=== PATIENT | male | born 1975 | race Caucasian/White ===

== ENCOUNTER 2016-10-20 10:05 | Emergency (ER) | payer OTHER ==
[2016-10-20 10:19] VITALS: BP 130/83
--- NOTE | 2016-10-20 11:06 | UC ---
Laceration HPI - HPI Summary HPI Summary: THREE DAYS AGO LACERATION TO LEFT INDEX FINGER WITH AUDIO/VISUAL MANAGER. TODAY WHILE SHOVELING, WOUND KEEPS OPENING. TETANUS UTD. - History Of Current Complaint Chief Complaint: UCLaceration Stated Complaint: HAND LAC Time Seen by Provider: 10/20/16 10:09 Hx Obtained From: Patient Laceration Location: Finger Mechanism Of Injury: Sharp Trauma Onset/Duration: Sudden Onset, Lasting Days, Worse Since - TODAYS Severity: Mild Aggravating Factors: Nothing Related History: Dominant Hand Right - Allergies/Home Medications Allergies/Adverse Reactions: Allergies Allergy/AdvReac Type Severity Reaction Status Date / Time No Known Allergies Allergy Verified 10/20/16 10:20 Home Medications: Home Medications Buprenorphine HCl-Naloxone HCl [Suboxone] 1 mis SL 10/20/16 [History] PMH/Surg Hx/FS Hx/Imm Hx Previously Healthy: Yes Endocrine History Of: Denies: Diabetes Cardiovascular History Of: Denies: Hypertension, Congestive Heart Failure GI/ History Of: Denies: Renal Disease - Surgical History Surgical History: Yes Surgery Procedure, Year, and Place: CHOLECYSTECTOMY - Family History Known Family History: Positive: Unknown Negative: Blood Disorder - Social History Occupation: Employed Full-time Lives: With Family Alcohol Use: None Substance Use Type: None, Prescribed Substance Use Comment - Amount & Last Used: suboxone Smoking Status (MU): Heavy Every Day Tobacco Smoker Type: Cigarettes Amount Used/How Often: 1.5 ppd Have You Smoked in the Last Year: Yes Cessation Counseling: Patient Advised to Stop - Immunization History Most Recent Tetanus Shot: less 10 years ago Review of Systems Constitutional: Negative Skin: Other - LACERATION LEFT INDEX FINGER Eyes: Negative ENT: Negative Respiratory: Negative Cardiovascular: Negative Gastrointestinal: Negative Genitourinary: Negative Motor: Negative Neurovascular: Negative Musculoskeletal: Negative Neurological: Negative Psychological: Negative All Other Systems Reviewed And Are Negative: Yes Physical Exam Triage Information Reviewed: Yes Appearance: Well-Appearing, No Pain Distress, Well-Nourished Vital Signs: Initial Vital Signs Temp 98.4 F 10/20/16 10:13 Pulse 70 10/20/16 10:13 Resp 20 10/20/16 10:13 BP 130/83 10/20/16 10:13 Pulse Ox 99 10/20/16 10:13 Vital Signs Reviewed: Yes Eye Exam: Normal ENT Exam: Normal ENT: Positive: Normal ENT inspection Dental Exam: Normal Neck exam: Normal Neck: Positive: Supple, Nontender, No Lymphadenopathy Respiratory Exam: Normal Respiratory: Positive: Chest non-tender, Lungs clear, Normal breath sounds, No respiratory distress, No accessory muscle use Cardiovascular Exam: Normal Cardiovascular: Positive: RRR, No Murmur, Pulses Normal, Brisk Capillary Refill Abdominal Exam: Normal Abdomen Description: Positive: Nontender, No Organomegaly Musculoskeletal Exam: Normal Musculoskeletal: Positive: Strength Intact, ROM Intact Neurological Exam: Normal Psychological Exam: Normal Psychological: Positive: Normal Response To Family Skin: Positive: Other - 3CM LACERATION LEFT INDEX FINGER Laceration Repair - Laceration Repair 1 Laceration Size After Repair: Length (cm) - 3, Width (mm) - 2, Depth (mm) - 2 Cleansing Completed Via Routine Prep: Yes Closure Material: Skin Adhesive, SteriStrips Laceration Course/Dx - Differential Dx - Laceration/Wound Provider Diagnoses: OLD LACERATION 3CM LEFT INDEX FINGER Discharge - Discharge Plan Condition: Stable Disposition: HOME Prescriptions: Cephalexin CAP* [Keflex CAP*] 500 mg PO TID #15 cap Patient Education Materials: Skin Adhesive Care (ED), Steristrips (ED), Laceration Without Closure (ED) Forms: *Work Release Referrals: Harmony Gunter DO [Primary Care Provider] -
== END 2016-10-20 11:09 | disposition home or self-care (01) ==
LOC: UCEAST 10:05
DX: T81.30XA Disruption of wound, unspecified, initial encounter (principal); Z90.49 Acquired absence of other specified parts of digestive tract; F17.210 Nicotine dependence, cigarettes, uncomplicated
CPT/HCPCS: 99212; G0463

== ENCOUNTER 2016-12-29 12:28 | Emergency (ER) | payer OTHER ==
[2016-12-29 13:36] VITALS: BP 130/71
--- NOTE | 2016-12-29 14:21 | UC ---
Upper Extremity HPI <Hoda Echols - Last Filed: 12/29/16 14:16> - HPI Summary HPI Summary: Patient has had a sharp pain in the irght shoulder since a shovelling injury a few weeks ago, is suffering from tennis elbow bilaterally, clicking sound in the right shoulder - History of Current Complaint Hx Obtained From: Patient ?: No Onset/Duration: Sudden Onset, Lasting Weeks Severity Initially: Moderate Severity Currently: Moderate Location Of Pain: Is Discrete @ - upper right shoulder Character: Sharp, Spasmodic Aggravating Factor(s): Movement Alleviating Factor(s): Nothing - Risk Factors Non-Orthopedic Risk Factor: Negative DVT Risk Factors: Negative <Selena Parson - Last Filed: 12/29/16 14:31> - History of Current Complaint Chief Complaint: UCUpperExtremity Stated Complaint: ELBOW/SHOULDER PAIN - Allergies/Home Medications Allergies/Adverse Reactions: Allergies Allergy/AdvReac Type Severity Reaction Status Date / Time No Known Allergies Allergy Verified 12/29/16 13:36 PMH/Surg Hx/FS Hx/Imm Hx Endocrine History Of: Denies: Diabetes Cardiovascular History Of: Denies: Hypertension, Congestive Heart Failure GI/ History Of: Denies: Renal Disease - Surgical History Surgical History: Yes Surgery Procedure, Year, and Place: CHOLECYSTECTOMY - Family History Known Family History: Negative: Blood Disorder - Social History Alcohol Use: None Substance Use Type: None, Prescribed Substance Use Comment - Amount & Last Used: suboxone Smoking Status (MU): Heavy Every Day Tobacco Smoker Type: Cigarettes Amount Used/How Often: 1.5 ppd Have You Smoked in the Last Year: Yes - Immunization History Most Recent Tetanus Shot: less 10 years ago <Hoda Echols - Last Filed: 12/29/16 14:16> Previously Healthy: Yes - Family History Known Family History: Positive: Hypertension <Selena Parson - Last Filed: 12/29/16 14:31> Review of Systems Constitutional: Negative Skin: Negative Eyes: Negative ENT: Negative Respiratory: Negative Cardiovascular: Negative Gastrointestinal: Negative Genitourinary: Negative Motor: Negative Neurovascular: Negative Musculoskeletal: Arthralgia, Myalgia Neurological: Negative Psychological: Negative All Other Systems Reviewed And Are Negative: Yes <Selena Parson - Last Filed: 12/29/16 14:31> Physical Exam Vital Signs: Initial Vital Signs Temp 98.7 F 12/29/16 13:33 Pulse 65 12/29/16 13:33 Resp 20 12/29/16 13:33 BP 130/71 12/29/16 13:33 Pulse Ox 99 12/29/16 13:33 <Hoda Echols - Last Filed: 12/29/16 14:16> Triage Information Reviewed: Yes Appearance: Well-Appearing, Well-Nourished, Pain Distress Vital Signs: Initial Vital Signs Temp 98.7 F 12/29/16 13:33 Pulse 65 12/29/16 13:33 Resp 20 12/29/16 13:33 BP 130/71 12/29/16 13:33 Pulse Ox 99 12/29/16 13:33 Vital Signs Reviewed: Yes Eye Exam: Normal Eyes: Positive: Conjunctiva Clear ENT: Positive: Normal ENT inspection, Hearing grossly normal, Pharynx normal, TMs normal Dental Exam: Normal Neck exam: Normal Neck: Positive: Supple, Nontender, No Lymphadenopathy Respiratory Exam: Normal Respiratory: Positive: Chest non-tender, Lungs clear, Normal breath sounds Cardiovascular Exam: Normal Cardiovascular: Positive: RRR, No Murmur, Pulses Normal Abdominal Exam: Normal Abdomen Description: Positive: Nontender, No Organomegaly, Soft Bowel Sounds: Positive: Present Musculoskeletal: Positive: ROM Intact - but painful in all directions, No Edema , Strength Limited @ - over head motion painful, apley scratch test decreased on right side Neurological: Positive: Alert, Muscle Tone Normal Psychological Exam: Normal Skin Exam: Normal <Selena Parson - Last Filed: 12/29/16 14:31> Upper Extremity Course/Dx - Course Course Of Treatment: hx obtained, exam performed, meds reviewed, naproxen given , xray obtained, - Differential Dx/Diagnosis Differential Diagnosis/HQI/PQRI: Bursitis, Contusion, Fracture (Closed), Laceration, Strain, Sprain <Selena Parson - Last Filed: 12/29/16 14:31> Discharge <Hoda Echols - Last Filed: 12/29/16 14:16> <Selena Parson - Last Filed: 12/29/16 14:31> - Discharge Plan Referrals: Harmony Gunter DO [Primary Care Provider] -
[2016-12-29] MEDS ORDERED: Naproxen TAB* 250 MG PO ONE (14:24)
--- NOTE | 2016-12-29 14:43 | UC ---
Shoulder Pain HPI - HPI Summary HPI Summary: Patient has had increased pain in the right shoulder since he was shoveling a few weeks ago, also has tendonitis of both elbows. - History of Current Complaint Chief Complaint: UCUpperExtremity Stated Complaint: ELBOW/SHOULDER PAIN Time Seen by Provider: 12/29/16 14:17 Hx Obtained From: Patient Onset/Duration: Sudden Onset, Lasting Weeks Severity Initially: Moderate Severity Currently: Moderate Location Of Pain: Is Discrete @ - upper right shoulder - Risk Factors Non-Orthopedic Risk Factor: Negative DVT Risk Factors: Negative - Allergies/Home Medications Allergies/Adverse Reactions: Allergies Allergy/AdvReac Type Severity Reaction Status Date / Time No Known Allergies Allergy Verified 12/29/16 13:36 PMH/Surg Hx/FS Hx/Imm Hx Previously Healthy: Yes Endocrine History Of: Denies: Diabetes Cardiovascular History Of: Denies: Hypertension, Congestive Heart Failure GI/ History Of: Denies: Renal Disease - Surgical History Surgical History: Yes Surgery Procedure, Year, and Place: CHOLECYSTECTOMY - Family History Known Family History: Positive: Hypertension Negative: Blood Disorder - Social History Alcohol Use: None Substance Use Type: None, Prescribed Substance Use Comment - Amount & Last Used: suboxone Smoking Status (MU): Heavy Every Day Tobacco Smoker Type: Cigarettes Amount Used/How Often: 1.5 ppd Have You Smoked in the Last Year: Yes - Immunization History Most Recent Tetanus Shot: less 10 years ago Review of Systems Constitutional: Negative Skin: Negative Eyes: Negative ENT: Negative Respiratory: Negative Cardiovascular: Negative Gastrointestinal: Negative Genitourinary: Negative Motor: Negative Neurovascular: Negative Musculoskeletal: Arthralgia, Myalgia Neurological: Negative Psychological: Negative All Other Systems Reviewed And Are Negative: Yes Physical Exam Triage Information Reviewed: Yes Appearance: Well-Appearing, Well-Nourished, Pain Distress Vital Signs: Initial Vital Signs Temp 98.7 F 12/29/16 13:33 Pulse 65 12/29/16 13:33 Resp 20 12/29/16 13:33 BP 130/71 12/29/16 13:33 Pulse Ox 99 12/29/16 13:33 Vital Signs Reviewed: Yes Eye Exam: Normal Eyes: Positive: Conjunctiva Clear ENT: Positive: Normal ENT inspection, Hearing grossly normal, Pharynx normal, TMs normal Dental Exam: Normal Neck exam: Normal Neck: Positive: Supple, Nontender, No Lymphadenopathy Respiratory Exam: Normal Respiratory: Positive: Chest non-tender, Lungs clear, Normal breath sounds Cardiovascular Exam: Normal Cardiovascular: Positive: RRR, No Murmur, Pulses Normal Abdominal Exam: Normal Abdomen Description: Positive: Nontender, No Organomegaly, Soft Bowel Sounds: Positive: Present Musculoskeletal: Positive: ROM Intact - but painful in all directions, No Edema , Strength Limited @ - over head motion painful, apley scratch test decreased on right side Neurological: Positive: Alert, Muscle Tone Normal Psychological Exam: Normal Skin Exam: Normal Shoulder Course/Dx - Course Course Of Treatment: hx obtained, exam performed, meds reviewed, naproxen given , xray obtained no acute injury noted, educated on stretching, and use of heat to increase mobility. Recommend massage therapy for medical terminologist care. - Differential Dx/Diagnosis Differential Diagnosis/HQI/PQRI: AC Separation, Dislocation, Fracture (Closed), Sprain, Strain, Tendonitis Provider Diagnoses: bilateral shoulder tendonitis Discharge - Discharge Plan Condition: Stable Disposition: HOME Patient Education Materials: Tendinitis (ED) Referrals: Harmony Gunter DO [Primary Care Provider] - Additional Instructions: 1. take the anti inflammatory as prescribed. 2. follow up with stretching - you can access the following stretching techniques on YouTube search Joselito Deal. 3. I recommend rest, heat and massage to help relieve the tight musculature and tendons
--- NOTE | 2016-12-29 14:48 | RAD ---
HISTORY: Right shoulder pain COMPARISONS: None VIEWS: 3, Frontal internal rotation, external rotation, and outlet views of the right shoulder. There is no significant excursion on the external rotation views. FINDINGS: BONE DENSITY: Normal. BONES: There is no displaced fracture. JOINTS: There is no arthropathy. ALIGNMENT: There is no dislocation. SOFT TISSUES: Unremarkable. OTHER FINDINGS: None. IMPRESSION: LIMITED STUDY. NO ACUTE OSSEOUS INJURY. IF SYMPTOMS PERSIST, RECOMMEND REPEAT IMAGING.
== END 2016-12-29 15:09 | disposition home or self-care (01) ==
LOC: UCEAST 12:28
DX: M75.92 Shoulder lesion, unspecified, left shoulder (principal); M75.91 Shoulder lesion, unspecified, right shoulder; F17.210 Nicotine dependence, cigarettes, uncomplicated
CPT/HCPCS: 99212; A9270-GY; G0463

== ENCOUNTER 2018-08-16 08:12 | Emergency (ER) | payer SELFPAY ==
[2018-08-16 08:20] VITALS: BP 147/87
--- NOTE | 2018-08-16 09:39 | UC ---
Lower Extremity/Ankle HPI - HPI Summary HPI Summary: 43-year-old male comes in to clinic today with a chief complaint of right anterior walters injury that occurred on August 13, 2018 while at work. He struck his right walters on an object. He has an abrasion there. He's been keeping the area clean and has been applying coconut oil to the area. No drainage. He has quite a bit of tenderness with any sort of palpation. He has pain with ambulation also. He is weightbearing. - History of Current Complaint Chief Complaint: UCLowerExtremity Stated Complaint: R LEG INJURY Time Seen by Provider: 08/16/18 08:25 Pain Intensity: 4 - Allergies/Home Medications Allergies/Adverse Reactions: Allergies Allergy/AdvReac Type Severity Reaction Status Date / Time No Known Allergies Allergy Verified 08/16/18 08:21 PMH/Surg Hx/FS Hx/Imm Hx Previously Healthy: Yes - Surgical History Surgical History: Yes Surgery Procedure, Year, and Place: CHOLECYSTECTOMY - Family History Known Family History: Positive: Hypertension Negative: Blood Disorder - Social History Alcohol Use: None Substance Use Type: None Substance Use Comment - Amount & Last Used: suboxone Smoking Status (MU): Heavy Every Day Tobacco Smoker Type: Cigarettes Amount Used/How Often: 1.5 ppd Have You Smoked in the Last Year: Yes - Immunization History Most Recent Tetanus Shot: less 10 years ago Review of Systems All Other Systems Reviewed And Are Negative: Yes Constitutional: Positive: Negative Skin: Positive: Other - SEE HPI Eyes: Positive: Negative ENT: Positive: Negative Respiratory: Positive: Negative Cardiovascular: Positive: Negative Gastrointestinal: Positive: Negative Motor: Positive: Negative Neurovascular: Positive: Negative Musculoskeletal: Positive: Other: - SEE HPI Neurological: Positive: Negative Psychological: Positive: Negative Is Patient Immunocompromised?: No Physical Exam Triage Information Reviewed: Yes Appearance: Well-Appearing, No Pain Distress, Well-Nourished Vital Signs: Initial Vital Signs Temp 98 F 08/16/18 08:17 Pulse 78 08/16/18 08:17 Resp 16 08/16/18 08:17 BP 147/87 08/16/18 08:17 Pulse Ox 100 08/16/18 08:17 Vital Signs Reviewed: Yes Eye Exam: Normal Eyes: Positive: Conjunctiva Clear Neck exam: Normal Neck: Positive: Supple Respiratory: Positive: No respiratory distress Musculoskeletal Exam: Normal Musculoskeletal: Positive: Strength Intact, ROM Intact Neurological Exam: Normal Neurological: Positive: Alert, Muscle Tone Normal Psychological Exam: Normal Psychological: Positive: Age Appropriate Behavior Skin: Positive: Other - On the right walters the patient has an approximately 5 cm abrasion that is 1 cm wide. IT does have surrounding erythema. No drainage no streaking. It's tender to palpation. The knee and the ankle are full range of motion and nontender to palpation. Lower Extremity Course/Dx - Course Course Of Treatment: Order Information: LOWER LEG RIGHT. Accession Number: [id number]. CPT: 35264. Indication: Swelling and pain at the right walters following trauma. Comparison: None. Technique: AP and lateral views right lower leg. Report: The visualized bones are adequately corticated and well aligned. There is no acute. fracture, dislocation or other focal abnormality. The soft tissues appear grossly normal. IMPRESSION: No radiographically apparent fracture or dislocation. If the patient's symptoms persist, follow-up imaging is recommended. . <Electronically signed by Wilber Ferrell MD in OV> 08/16/18 0900. I discussed the x-ray reports with the patient. The overall plan is to continue the symptomatic treatment. I also sent and an antibiotic prescription to be used if the redness spreads with is any drainage or any concern of infection. Follow-up if not improving or worsening. - Differential Dx/Diagnosis Provider Diagnosis: Contusion of right lower leg, Abrasion of right lower leg Discharge - Sign-Out/Discharge Documenting (check all that apply): Patient Departure All imaging exams completed and their final reports reviewed: Yes - Discharge Plan Condition: Stable Disposition: HOME Prescriptions: Cephalexin CAP* [Keflex CAP*] 500 mg PO QID #40 cap Patient Education Materials: Contusion in Adults (ED), Abrasion (ED) Referrals: [facility] [place] [facility] REFERRAL [Outside] Additional Instructions: FOLLOW UP WITH YOUR DOCTOR IF NOT COMPLETELY IMPROVED. START THE ANTIBIOTIC IF THERE ARE ANY SIGNS OF INFECTION. GET RECHECKED FOR ANY WORSENING OF YOUR CONDITION; PAIN, FEVER, INFECTION, YOU FEEL ILL OR QUESTIONS OR CONCERNS. - Billing Disposition and Condition Condition: STABLE Disposition: Home
== END 2018-08-16 09:30 | disposition home or self-care (01) ==
LOC: UCEAST 08:12
DX: S80.811A Abrasion, right lower leg, initial encounter (principal); W22.8XXA Striking against or struck by other objects, initial encounter; Y92.89 Other specified places as the place of occurrence of the external cause; Y99.0 Civilian activity done for income or pay; F17.210 Nicotine dependence, cigarettes, uncomplicated
CPT/HCPCS: 99212; G0463

== ENCOUNTER 2019-10-08 15:07 | Emergency (ER) | payer MEDICAID, OTHER ==
[2019-10-08 15:13] VITALS: BP 131/82
--- NOTE | 2019-10-08 15:29 | UC ---
Skin Complaint HPI - HPI Summary HPI Summary: patient was doing a mildred job over past week and kneeling frequently. he developed a small sore on R knee, tried to "pop it" 2-3 times over past 2 days, but nothing came out, no drainage since, but now red and swollen. no fever/ chills denies hx MRSA - History of Current Complaint Chief Complaint: UCSkin Time Seen by Provider: 10/08/19 15:19 Stated Complaint: KNEE PAIN Hx Obtained From: Patient Onset/Duration: Gradual Onset Timing: Constant Onset Severity: Mild Current Severity: Moderate Pain Intensity: 5 Location: Discrete - front of right knee Aggravating Factor(s): Touch, Other - bending knee Alleviating Factor(s): Nothing Associated Signs & Symptoms: Positive: Tenderness. 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 Substance Use Comment - Amount & Last Used: suboxone Smoking Status (MU): Heavy Every Day Tobacco Smoker Type: Cigarettes Amount Used/How Often: 1.5 ppd Have You Smoked in the Last Year: Yes Cessation Counseling: Patient Advised to Stop - Immunization History Most Recent Tetanus Shot: less 10 years ago Review of Systems All Other Systems Reviewed And Are Negative: Yes Constitutional: Positive: Negative Skin: Positive: Other - redness R knee Respiratory: Positive: Negative Cardiovascular: Positive: Negative Musculoskeletal: Negative: Decreased ROM Neurological: Positive: Negative Psychological: Positive: Negative Is Patient Immunocompromised?: No Physical Exam Triage Information Reviewed: Yes Appearance: Well-Appearing, No Pain Distress, Well-Nourished Vital Signs: Initial Vital Signs Temp 98.0 F 10/08/19 15:10 Pulse 80 10/08/19 15:10 Resp 16 10/08/19 15:10 BP 131/82 10/08/19 15:10 Pulse Ox 98 10/08/19 15:10 Vital Signs Reviewed: Yes Respiratory Exam: Normal Respiratory: Positive: Lungs clear Cardiovascular Exam: Normal Cardiovascular: Positive: RRR Musculoskeletal Exam: Normal Neurological Exam: Normal Psychological Exam: Normal Skin: Positive: Other - 2cm round, erythemic swollen, slightly fluctuant area R patella, no drainage Course/Dx - Differential Diagnoses - Skin Complaint Differential Diagnoses: Abscess, Cellulitis - Diagnoses Provider Diagnosis: Abscess Discharge ED - Sign-Out/Discharge Documenting (check all that apply): Patient Departure All imaging exams completed and their final reports reviewed: No Studies - Discharge Plan Condition: Good Disposition: HOME Prescriptions: Sulfamethox/Trimethoprim DS* [Bactrim DS 800/160 TAB*] 1 tab PO BID #20 tab Patient Education Materials: Abscess (ED) Referrals: No Primary Care Phys,NOPCP [Primary Care Provider] - Additional Instructions: keep area clean and dry and refrain from applying pressure on knee start Bactrim antibiotic and take as directed use ibuprofen for pain return here if your pain worsens, or you develop a fever/chills or worsening swelling - Billing Disposition and Condition Condition: GOOD Disposition: Home
== END 2019-10-08 15:44 | disposition home or self-care (01) ==
LOC: UCEAST 15:07
DX: L02.415 Cutaneous abscess of right lower limb (principal); F17.210 Nicotine dependence, cigarettes, uncomplicated
CPT/HCPCS: 99212; G0463